=== PATIENT | female | born 1945 | race Two or more races ===

== ENCOUNTER 2017-05-08 11:48 | Inpatient (IN) | payer MEDICARE, BC ==
[~2017-05-08] VITALS: Ht 157.5 cm; Wt 62.1 kg
[~2017-05-08 11:48] MED LIST: LEVO500T15 PO
--- NOTE | 2017-05-08 12:00 | NUR ---
PT TO ED ROOM 07. BIB RA C/O LOWER ABDOMINAL PAIN SINCE YESTERDAY AND BLOOD IN STOO. A/A/O. AMBULATROY. CHANGED TO GOWN. CONNECTED TO MONITOR. SEEN AND EVALUATED BY ED PROVIDER.
[2017-05-08 12:11] LABS: BASOPHILS % (AUTO) 0.3 % (0.0-2.0); EOSINOPHILS % (AUTO) 0.4 % (0.0-6.0); HEMATOCRIT 45 % (33-45); HEMOGLOBIN 14.7 g/dL (11.5-14.8); LYMPHOCYTES # (AUTO) 1.4 /CMM (0.8-4.8); LYMPHOCYTES % (AUTO) 13.2 % (20.0-44.0); MEAN CORPUSCULAR HEMOGLOBIN 30 PG (26.0-33.0); MEAN CORPUSCULAR HGB CONC 33 g/dl (31.0-36.0); MEAN CORPUSCULAR VOLUME 92 fL (82-100); MONOCYTES # (AUTO) 0.3 /CMM (0.1-1.30); MONOCYTES % (AUTO) 3.2 % (2.0-12.0); NEUTROPHILS # (AUTO) 8.6 /CMM (1.8-8.9); NEUTROPHILS % (AUTO) 82.9 % (43.0-81.0); PLATELET COUNT (AUTO) 248 /CMM (150-450); RDW COEFFICIENT OF VARIATION 11.9 (11.5-15.0); RED BLOOD CELL COUNT(AUTO) 4.85 MIL/uL (4.0-5.2); WHITE BLOOD COUNT (AUTO) 10.3 K/uL (4.3-11.0)
[2017-05-08 12:24] LABS: PROTHROMBIN TIME 10.4 SECS (9.5-12.7)
[2017-05-08 12:27] LABS: ALANINE AMINOTRANSFERASE 21 U/L (12-78); ALKALINE PHOSPHATASE 82 U/L (46-116); ASPARTATE AMINOTRANSFERASE 25 U/L (15-37); BILIRUBIN,DIRECT 0.1 mg/dL (0.0-0.2); BILIRUBIN,TOTAL 0.6 mg/dL (0.2-1.0); CARBON DIOXIDE 30 mmol/L (21-32); CHLORIDE 104 mmol/L (98-107); CREATININE 0.9 mg/dL (0.6-1.3); GLUCOSE 116 mg/dL (74-106); LIPASE 83 U/L (73-393); POTASSIUM 3.8 mmol/L (3.5-5.1); SODIUM SERUM 140 mmol/L (136-145); TOTAL PROTEIN, SERUM 7.5 g/dL (6.4-8.2); UREA NITROGEN, BLOOD 33 mg/dL (7-18)
[2017-05-08 12:29] LABS: TROPONIN I < 0.017 ng/mL (0.00-0.056)
[2017-05-08] MEDS ORDERED: IOHEXOL-300 100 ML VIAL IV ONE (13:01)
[2017-05-08] MEDS ORDERED: IV NS 0.9% 250 ML IV ONE (13:02)
--- NOTE | 2017-05-08 13:21 | NUR ---
Patient is resting comfortably in bed with eyes closed. Easily aroused. VSS
--- NOTE | 2017-05-08 13:44 | NUR ---
PAGED DR. MON FOR ADMISSION
[2017-05-08] MEDS ORDERED: PIPERACILLIN /TAZOBACTAM 3.375 G in IV D5W 50 ML IV ONE (14:00)
[2017-05-08] MEDS ORDERED: FLAGYL/NS RTU 500 MG/100 ML PIGGYBACK IV ONE (14:00)
[2017-05-08] MEDS ORDERED: Z GUARD REMEDY 2 OZ OINT TP PRN (14:30)
[2017-05-08] MEDS ORDERED: ZOLPIDEM TARTRATE 5 MG TABLET PO PRN (14:30)
[2017-05-08] MEDS ORDERED: PIPERACILLIN /TAZOBACTAM 4.5 G in IV D5W 50 ML IV SCH (14:30)
[2017-05-08] MEDS ORDERED: ONDANSETRON HCL/PF 4 MG/2 ML VIAL IVP PRN (14:30)
--- NOTE | 2017-05-08 14:50 | NUR ---
REPORT GIVEN TO [facility] ROOM 102
[2017-05-08 15:00] VITALS: BP 165/89
--- NOTE | 2017-05-08 15:00 | NUR ---
RN NOTES RECEIVED PT FROM ER IN ROOM 102, A/Ox4, RESPIRATION EVEN AND UNLABORED, ON RA , NO SOB NOTED, L AC IV SITE #18 CDI, PT C/O BLOODY STOOL , DENIES ABDOMINAL PAIN AT THIS TIME , SR UP x3, CALL LIGHT WITHIN EASY REACH. BED LOCKED AND IN LOWEST POSITION , CONTINUE TO MONITOR PT CLOSELY AND NOTIFY MD FOR ANY SIGNIFICANT CHANGES
[2017-05-08 16:00] VITALS: BP_SYST 160; BP_SYST 182; BP_DIAS 58; BP_DIAS 87
[2017-05-08] MEDS: IV D5/0.45 NACL 1,000 ML IV PRN (16:24)
--- NOTE | 2017-05-08 17:15 | NUR ---
RN NOTES BP 179/98 , PT [facility] ANY DISTRESS , DR BANSAL PAGED AND NOTIFIED , CLONIDINE .1 MG PO GIVEN , CONTINUE TO MONITOR PT .
[2017-05-08] MEDS ORDERED: CLONIDINE HCL 0.1 MG TABLET PO PRN (18:00)
[2017-05-08] MEDS: PIPERACILLIN /TAZOBACTAM 3.375 G in IV D5W 50 ML IV SCH ×2 (18:25→23:51)
--- NOTE | 2017-05-08 18:45 | NUR ---
RN NOTES BP =146/ 80. PT AT REST , NO DISTRESS NOTED,
[2017-05-08 19:12] LABS: OCCULT BLOOD STOOL NEGATIVE (NEGATIVE)
--- NOTE | 2017-05-08 19:30 | NUR ---
MS RN OPENING NOTES: PATIENT IN BED, AOX3, ON ROOM AIR, BREATHING EVEN AND UNLABORED. BREATH SOUNDS CLEAR TO AUSCULTATION. PIV OVER LAC G 18 INTACT AND PATENT, INFUSING WELL WITH D5 1/2 NS RUNNING AT 75 ML/HR. PATIENT COMPLAINS OF INTERMITTENT ABDOMINAL PAIN SCALED AT 4/10, SAYING "IT COMES AND GOES.". PATIENT APPEARS CALM AND IN NO DISTRESS. PROVIDED FOR COMFORT AND SAFETY. WILL CONT TO MONITOR.
[2017-05-08 20:00] VITALS: BP 137/75
--- NOTE | 2017-05-08 22:54 | NUR ---
RN NOTES: PATIENT ASSISTED TO BATHROOM, NOTED THAT SHE HAS SMALL, BLOODY MUCUS APPEARING BM, WITHOUT MUCH SOLID STOOL NOTED. PATIENT'S DAUGHTER AT BEDSIDE AT THIS TIME WELL.
[2017-05-09 04:00] VITALS: BP 128/72
[2017-05-09] MEDS: PIPERACILLIN /TAZOBACTAM 3.375 G in IV D5W 50 ML IV SCH ×3 (06:28→17:11)
[2017-05-09] MEDS: IV D5/0.45 NACL 1,000 ML IV PRN (06:29)
[2017-05-09 06:40] LABS: BASOPHILS % (AUTO) 0.3 % (0.0-2.0); EOSINOPHILS # (AUTO) 0.2 /CMM (0.0-0.7); HEMATOCRIT 38 % (33-45); HEMOGLOBIN 13.1 g/dL (11.5-14.8); LYMPHOCYTES # (AUTO) 1.9 /CMM (0.8-4.8); LYMPHOCYTES % (AUTO) 21.2 % (20.0-44.0); MEAN CORPUSCULAR HEMOGLOBIN 31 PG (26.0-33.0); MEAN CORPUSCULAR HGB CONC 34 g/dl (31.0-36.0); MEAN CORPUSCULAR VOLUME 91 fL (82-100); MONOCYTES # (AUTO) 0.7 /CMM (0.1-1.30); MONOCYTES % (AUTO) 7.3 % (2.0-12.0); NEUTROPHILS # (AUTO) 6.3 /CMM (1.8-8.9); NEUTROPHILS % (AUTO) 69.2 % (43.0-81.0); PLATELET COUNT (AUTO) 197 /CMM (150-450); RDW COEFFICIENT OF VARIATION 12.7 (11.5-15.0); RED BLOOD CELL COUNT(AUTO) 4.16 MIL/uL (4.0-5.2); WHITE BLOOD COUNT (AUTO) 9.2 K/uL (4.3-11.0)
[2017-05-09] MEDS: ACETAMINOPHEN 325 MG TABLET PO PRN ×2 (06:49→16:32)
[2017-05-09 06:58] LABS: ALANINE AMINOTRANSFERASE 15 U/L (12-78); ALKALINE PHOSPHATASE 57 U/L (46-116); ASPARTATE AMINOTRANSFERASE 21 U/L (15-37); BILIRUBIN,TOTAL 0.7 mg/dL (0.2-1.0); CALCIUM, SERUM 8.1 mg/dL (8.5-10.1); CARBON DIOXIDE 31 mmol/L (21-32); CHLORIDE 106 mmol/L (98-107); CHOLESTEROL 165 mg/dL (<200); CREATININE 0.9 mg/dL (0.6-1.3); GLUCOSE 107 mg/dL (74-106); HDL CHOLESTEROL 73 mg/dL (40-60); LDL 79 mg/dL (0-99); MAGNESIUM 1.8 mg/dL (1.8-2.4); POTASSIUM 3.7 mmol/L (3.5-5.1); SODIUM SERUM 141 mmol/L (136-145); TOTAL PROTEIN, SERUM 6.2 g/dL (6.4-8.2); TRIGLYCERIDES 54 mg/dL (30-150); UREA NITROGEN, BLOOD 18 mg/dL (7-18)
--- NOTE | 2017-05-09 07:00 | NUR ---
RN NOTES: RECEIVED PT ON BED, A/Ox4, RESPIRATION EVEN AND UNLABORED , ON RA , LAC G 18 INTACT AND WITH D5 1/2 NS RUNNING AT 75 ML/HR. PATIENT STILL HAS SMALL AMOUNTS OF LIQUID TO MUCOID BLOODY BM. OOB TO BR WITH ASSIST , SR UP x3 , BED LOCKED AND IN LOWEST POSITION , CALL LIGHT WITHIN EASY REACH, CONTINUE TO MONITOR PT CLOSELY AND NOTIFY MD FOR ANY SIGNIFICANT CHANGES.
--- NOTE | 2017-05-09 07:17 | NUR ---
MS RN CLOSING NOTES: PATIENT IN BED, AOX4, ON ROOM AIR, BREATHING EVEN AND UNLABORED. PIV OVER LAC G 18 INTACT AND INFUSING WELL WITH D5 1/2 NS RUNNING AT 75 ML/HR. MAINTAINED ON CLEAR LIQUID DIET. PATIENT STILL HAS SMALL AMOUNTS OF LIQUID TO MUCOID BLOODY BM. APPEARS CALM AND IN NO DISTRESS, COMPLAINS ONLY OF MILD, INTERMITTENT, LOWER ABDOMINAL PAIN THROUGH NIGHT. ADMINISTERED TYLENOL 650 MG PO PRN AT 0650 PM PROVIDED FOR COMFORT AND SAFETY. VS CHECKED, STABLE. DUE MEDS GIVEN. NO ACUTE CHANGE IN CONDITION NOTED THROUGH SHIFT. ENDORSED TO YASMINE TUTTLE FOR RANDALL.
[2017-05-09 08:00] VITALS: BP 115/61
--- NOTE | 2017-05-09 12:00 | NUR ---
RN NOTES PT STABLE, OUT OF BED TO BR WITH MINIMUM ASSIST , NO DISTRESS NOTED, TOLERATING CLEAR LIQUID DIET WELL, CONTINUE TO MONITOR ,
[2017-05-09 16:00] VITALS: BP 129/64
--- NOTE | 2017-05-09 18:14 | NUR ---
RN NOTES PT STABLE , RESPIRATION EVEN AND UNLABORED , D51/2 NS AT 75CC/HR RUNNING VIA L AC IV SITE , PT [facility] ANY DISTRESS AT THIS TIME , MEDICATED PER MD ORDER , NO SIGNIFICANT CHANGES NOTED ON THIS SHIFT.
--- NOTE | 2017-05-09 19:27 | NUR ---
MS RN INITIAL NOTE RECEIVED PT AWAKE AND ALERT ORIENTED X3, NO COMPLAINT OF PAIN OR RESPIRATORY DISTRESS NOTED DURING PHYSICAL ASSESSMENT, PT IS CLEAN/DRY AND COMFORTABLE, WILL MAINTAIN SAFETY MEASURES AT ALL TIMES, NEEDS WILL BE ANTICIPATED AND ATTENDED TO DURING HOURLY ROUNDS OR NEEDED.
[2017-05-09 20:00] VITALS: BP 126/65
[2017-05-09] MEDS: HYDROCODONE/APAP 5/325MG 1 EACH TABLET PO PRN (21:37)
[2017-05-10] MEDS: PIPERACILLIN /TAZOBACTAM 3.375 G in IV D5W 50 ML IV SCH ×4 (00:07→17:27)
--- NOTE | 2017-05-10 03:40 | NUR ---
MS RN CLOSING NOTE PT REMAINED STABLE, NO SIGNIFICANT CHANGE IN CONDITION NOTED, ENDORSED TO MICHELE UNDERWOOD FOR RANDALL.
[2017-05-10] MEDS: IV D5/0.45 NACL 1,000 ML IV PRN ×2 (03:51→17:44)
[2017-05-10 04:00] VITALS: BP 147/71
--- NOTE | 2017-05-10 04:03 | NUR ---
MS1/RN RECEIVE PATIENT AWAKE, ALERT, ORIENTED, COMFORTABLE, NO C/O PAIN, NO DISTRESS NOTED, CALL LIGHT IN REACH. WILL MONITOR.
[2017-05-10 04:31] VITALS: BP 147/71
--- NOTE | 2017-05-10 06:44 | NUR ---
MS1/RN PATIENT IS SLEEPING, AROUSABLE, APPEAR COMFORTABLE, NO SIGNS OF DISTRESS NOTED, ALL NEEDS ATTENDED AT THIS TIME. WILL CONTINUE TO MONITOR.
[2017-05-10 08:00] VITALS: BP 130/76
--- NOTE | 2017-05-10 08:00 | NUR ---
MS1/RN RECEIVE PATIENT AWAKE, ALERT, ORIENTED, COMFORTABLE, NO C/O PAIN, NO DISTRESS NOTED, IV INTACT PATENT. CALL LIGHT IN REACH. WILL CONTINUE TO MONITOR.
--- NOTE | 2017-05-10 10:57 | NUR ---
RN NOTE PT. SHOWED PICTURE OF BM THIS AM, NOTED TO LOOK TARRY AND BLOODY, NEW ORDER FOR REPEAT STOOL OB
[2017-05-10] MEDS: HYDROCODONE/APAP 5/325MG 1 EACH TABLET PO PRN (11:12)
--- NOTE | 2017-05-10 12:00 | NUR ---
MS RN NOTES PATIENT SEEN AND EVALUATED BY DR. MON ORDERS NOTED AND CARRIED OUT.
[2017-05-10 13:13] LABS: BASOPHILS % (AUTO) 0.3 % (0.0-2.0); EOSINOPHILS # (AUTO) 0.2 /CMM (0.0-0.7); EOSINOPHILS % (AUTO) 1.8 % (0.0-6.0); HEMATOCRIT 39 % (33-45); HEMOGLOBIN 13.1 g/dL (11.5-14.8); LYMPHOCYTES # (AUTO) 1.4 /CMM (0.8-4.8); LYMPHOCYTES % (AUTO) 14.1 % (20.0-44.0); MEAN CORPUSCULAR HEMOGLOBIN 31 PG (26.0-33.0); MEAN CORPUSCULAR HGB CONC 34 g/dl (31.0-36.0); MEAN CORPUSCULAR VOLUME 91 fL (82-100); MONOCYTES # (AUTO) 0.4 /CMM (0.1-1.30); MONOCYTES % (AUTO) 3.8 % (2.0-12.0); PLATELET COUNT (AUTO) 200 /CMM (150-450); RDW COEFFICIENT OF VARIATION 12.6 (11.5-15.0); RED BLOOD CELL COUNT(AUTO) 4.26 MIL/uL (4.0-5.2)
--- NOTE | 2017-05-10 18:34 | NUR ---
MS RN NOTES PATIENT IN BED RESTING NO SOB OR ACUTE DISTRESS NOTED. ALL DUE MEDICATIONS ADMINISTERED. ALL NEED MET. IV INTACT PATENT. WILL ENDORSE CARE TO PM SHIFT.
[2017-05-10 20:00] VITALS: BP 156/68
[2017-05-10] MEDS ORDERED: PEG 3350/NA SULF,BICARB,CL/KCL 4,000 ML BOTTLE PO ONE (22:00)
[2017-05-10] MEDS ORDERED: METOCLOPRAMIDE HCL 10 MG/2 ML VIAL IV ONE (22:00)
[2017-05-10] MEDS ORDERED: PEG 3350/NA SULF,BICARB,CL/KCL 4,000 ML BOTTLE ONE (22:03)
[2017-05-10] MEDS ORDERED: METOCLOPRAMIDE HCL 10 MG/2 ML VIAL ONE (22:12)
[2017-05-11] MEDS: PIPERACILLIN /TAZOBACTAM 3.375 G in IV D5W 50 ML IV SCH ×3 (00:01→12:15)
[2017-05-11 04:00] VITALS: BP 147/73
--- NOTE | 2017-05-11 07:40 | NUR ---
MS RN NOTES AWAKE & RESPONSIVE. NOT IN ANY DISTRESS. NO SOB NOTED. DENIES ANY PAIN OR DISCOMFORT AT THIS TIME. WITH IV-HL PATENT & INTACT. KEPT ON NPO. MONITORED ACCORDINGLY. CALL LIGHT WITHIN REACH. BED IN LOWEST POSITION. SR UP X 2 FOR SAFETY. WILL ENDORSE TO NEXT SHIFT.
--- NOTE | 2017-05-11 07:50 | NUR ---
RN MS NOTES PATIENT ALERT AND ORIENTED, NO S/SX OF DISTRESS OR PAIN NOTED, PIV ON LEFT AC #18, PATENT AND FLUSHES WELL, D5 1/2 NS @ 75ML/HR INFUSING AND TOLERATING WELL, NPO AT THIS TIME FOR COLONOSCOPY WITH DR. ALBERTS AT 8AM. NEEDS ATTENDED AND MET, CALL LIGHT WITHIN REACH. WILL CONTINUE TO MONITOR.
[2017-05-11 08:00] VITALS: BP 126/66
--- NOTE | 2017-05-11 08:08 | NUR ---
YASMINE MS NOTES PATIENT TAKEN TO OR FOR COLONOSCOPY.
--- NOTE | 2017-05-11 09:38 | NUR ---
RN MS NOTES PATIENT CAME BACK FROM OR STATUS POST COLONOSCOPY, ALERT AND ORIENTED, ASSISTED TO RESTROOM, VITAL SIGNS STABLE, BP 160/70 PULSE 88, SPO2 95%, RECEIVED NEW ORDERS FROM DR. ALBERTS, ORDERS NOTED AND CARRIED OUT.
--- NOTE | 2017-05-11 13:30 | NUR ---
RN MS NOTES PATIENT TOLERATED SOFT DIET, NO COMPLAINT OF PAIN OR DISCOMFORT, PATIENT IS REQUESTING HELP WITH CHOOSING A PRIMARY CARE PHYSICIAN, EDUCATIONAL PROGRAM ASSISTANT MADE AWARE AND WILL CONTACT THE PATIENT.
--- NOTE | 2017-05-11 16:20 | NUR ---
CIRCUIT TESTER PATIENT ALERT AND ORIENTED, NO DISTRESS NOTED, NO COMPLAINT OF PAIN, RECEIVED DISCHARGE ORDER FROM DR. MON, ORDER NOTED AND CARRIED OUT, PATIENT RECEIVED DISCHARGE INSTRUCTIONS, AND VERBALIZED UNDERSTANDING, PRESCRIPTION PROVIDED TO THE PATIENT, SKIN ASSESSMENT COMPLETED, SKIN INTACT, PIV REMOVED, LATEST VITAL SIGNS STABLE, BP 165/77, PER PATIENT SHE DOES NOT TAKE ANY HYPERTENSION MEDICATIONS, SHE EATS GARLIC AND IT HELPS WITH HER HYPERTENSION, NO DISTRESS NOTED, ALL NEEDS ATTENDED, BELONGINGS RECONCILED AND COMPLETED, PATIENT PICKED UP BY AND LEFT VIA PRIVATE CAR.
== END 2017-05-11 16:24 | disposition home or self-care (01) | DRG 394 ==
LOC: ER 11:51 → MEDSG1 14:00
PROVIDERS: ADMIT Internal Medicine; ATTEND Internal Medicine
PROC: 0DBL8ZX Excision of Transverse Colon, Via Natural or Artificial Opening Endoscopic, Diagnostic (ICD-10-PCS; 2017-05-11)
PROC: 0DBM8ZX Excision of Descending Colon, Via Natural or Artificial Opening Endoscopic, Diagnostic (ICD-10-PCS; principal; 2017-05-11 09:30)
DX: K55.9 Vascular disorder of intestine, unspecified (principal); A09 Infectious gastroenteritis and colitis, unspecified; J98.11 Atelectasis; R79.89 Other specified abnormal findings of blood chemistry; Z87.01 Personal history of pneumonia (recurrent); I10 Essential (primary) hypertension
CPT/HCPCS: 36415; 71010-TC; 80048-TC; 80053-TC; 80061-TC; 80076-TC; 82272-TC; 83690-TC; 83735-TC; 84100-TC; 84484-TC; 85025-TC; 85730-TC; 86850-TC; 87045-TC; 87081-TC; 88305-TC; 89055; A4606; J2543; J2704; J2765; J3490; J7050; J7060; Q9967; Z7610